=== PATIENT | female | born 1940 | race African-American/Black ===

== ENCOUNTER 2016-04-10 14:37 | Emergency (ER) | payer MEDICARE ==
[~2016-04-10] VITALS: Ht 165.1 cm; Wt 84.5 kg
[~2016-04-10 14:37] MED LIST: ALLE12TA PO; B COTAB3; BENI40TA31 PO; COLC1TAB7 PO; GLUC5TAB3 PO; HYDR-3580 PO; LORTA5 PO; ROBA750T3 PO; TAB-TAB
[2016-04-10 14:39] VITALS: BP 113/64; PULSE 90; RESP 16; TEMP 98; O2SAT 95
[2016-04-10 15:24] LABS: AUTOMATED NEUTROPHIL # 2.8 TH/MM3 (1.8-7.7); BASOPHIL % 0.9 % (0.0-2.0); EOSINOPHIL # 0.1 TH/MM3 (0-0.4); EOSINOPHIL % 1.7 % (0.0-4.0); HEMATOCRIT 36.5 % (35.0-46.0); HEMO FLAGS DIFF FINAL; LYMPH % 41.6 % (9.0-44.0); LYMPHOCYTE # 2.4 TH/MM3 (1.0-4.8); MEAN CELL VOLUME 80.8 FL (80.0-100.0); MEAN CORPUSCULAR HEMOGLOBIN 26.6 PG (27.0-34.0); MEAN CORPUSCULAR HGB CONC 32.9 % (32.0-36.0); NEUT % 48.8 % (16.0-70.0); PLATELET COUNT 214 TH/MM3 (150-450); RED BLOOD COUNT 4.52 MIL/MM3 (4.00-5.30); RED CELL DISTRIBUTION WIDTH 14.6 % (11.6-17.2); WHITE BLOOD COUNT 5.7 TH/MM3 (4.0-11.0)
[2016-04-10 15:39] LABS: BICARBONATE 31.8 MEQ/L (21.0-32.0); POTASSIUM 4.1 MEQ/L (3.5-5.1)
[2016-04-10 18:09] VITALS: BP 136/76; PULSE 72; RESP 18; O2SAT 96
[2016-04-10] MEDS ORDERED: BENI40TA5 PO (18:37)
[2016-04-10] MEDS ORDERED: GLUC5TAB3 PO (18:37)
[2016-04-10] MEDS ORDERED: PERC5TAB12 PO (18:37)
[2016-04-10] MEDS ORDERED: FERR325T PO (18:37)
--- NOTE | 2016-04-10 18:49 | RADRPT ---
EXAM DATE/TIME: 04/10/2016 18:13 [facility] COMPARISON: No previous studies available for comparison. INDICATIONS : Patient has had chest pain since this morning. MEDICAL HISTORY : Hypertension. Diabetes mellitus type II. SURGICAL HISTORY : None. ENCOUNTER: Initial ACUITY: 1 day PAIN SCORE: 10/10 LOCATION: Bilateral chest FINDINGS: No infiltrate, effusion or pneumothorax. Heart size normal. Thoracic aorta is tortuous. CONCLUSION: No evidence of acute cardiopulmonary disease. Robert Burgess MD on April 10, 2016 at 18:47 Board Certified Radiologist. This report was verified electronically.
--- NOTE | 2016-04-10 18:52 | PD ---
HPI Chief Complaint: Chest Pain Time Seen by Provider: 18:47 Travel History International Travel<30 days: No Contact w/Intl Traveler<30days: No Traveled to known affect area: No History of Present Illness HPI 76-year-old female that presents to the ED for evaluation of left-sided chest pain. Per patient the chest pain is positional. Per patient she tried to call her doctor to see the could see her but she could not so she was sent here. She states that she started with this pain around 6:00 this morning. She has any shortness of breath. No diaphoresis. She states having had a stress test about 2 years ago which was normal. She does have a history of diabetes and hypertension takes medications for this. Denies any history of high cholesterol. Has not taken anything for this. Per patient she is more concerned that he could be indigestion versus muscle pain that hearth. She denies any history of heart disease on herself. No stenting or surgery to the chest. She does have an allergy to aspirin and codeine. Pain per patient is 6 out of 10 and does not radiate. Does worsen with certain range of motion of the left arm. PFSH Past Medical History Arthritis: Yes Asthma: No Autoimmune Disease: No Blood Disorders: No Anxiety: No Depression: No Heart Rhythm Problems: No Cancer: No Cardiac Catheterization: Yes (2003 - NO INTERVENTIONS) Cardiovascular Problems: Yes (MURMUR) Chest Pain: Yes COPD: No Diabetes: Yes Patient Takes Glucophage: Yes Diminished Hearing: No Gastrointestinal Disorders: No Glaucoma: No Genitourinary: No Hepatitis: No Hypertension: Yes Kidney Stones: No Musculoskeletal: No Neurologic: No Psychiatric: No Reproductive: No Respiratory: No Migraines: Yes Radiation Therapy: No Renal Failure: No Seizures: Yes (years ago ) Sleep Apnea: No Thyroid Disease: No Ulcer: Yes ?: Not Menopausal: Yes Past Surgical History Abdominal Surgery: No Appendectomy: Yes Cardiac Surgery: No Ear Surgery: No Endocrine Surgery: No Eye Surgery: No Genitourinary Surgery: No Gynecologic Surgery: No Hysterectomy: Yes Neurologic Surgery: No Oral Surgery: No Pacemaker: No Thoracic Surgery: No Other Surgery: Yes (CARDIAC CATH 01/10) Family History Family Myocardial Infarction: Yes (MOTHER AND FATHER) Social History Alcohol Use: No Tobacco Use: No Substance Use: No Allergies-Medications (Allergen,Severity, Reaction): Coded Allergies: Aspirin (Verified Adverse Reaction, Severe, STOMACH UPSET/HAS ULCER, ) Codeine (Verified Adverse Reaction, Severe, GOES CRAZY, UPSET STOMACH, 01/12/15) VOMIT Reported Meds & Prescriptions Reported Meds & Active Scripts Active Reported Percocet (Oxycodone-Acetaminophen) 5-325 mg Tab 1 Tab PO DAILY PRN Ferrous Sulfate 325 Mg Tab 325 Mg PO AC DINNER Glucovance (Glyburide-Metformin) 5-500 Mg Tab 1 Tab PO BID Benicar Hct (Olmesartan-Hydrochlorothiazide) 40-12.5 mg Tab 1 Tab PO DAILY Review of Systems Except as stated in HPI: all other systems reviewed are Neg Physical Exam Narrative GENERAL: SKIN: Warm and dry. HEAD: Atraumatic. Normocephalic. EYES: Pupils equal and round. No scleral icterus. No injection or drainage. ENT: No nasal bleeding or discharge. Mucous membranes pink and moist. NECK: Trachea midline. No JVD. CARDIOVASCULAR: Regular rate and rhythm. No murmurs, S3, S4. Chest pain is not reproducible with touch but reproducible with range of motion of the left upper arm. RESPIRATORY: No accessory muscle use. Clear to auscultation. Breath sounds equal bilaterally. GASTROINTESTINAL: Abdomen soft, non-tender, nondistended. Hepatic and splenic margins not palpable. MUSCULOSKELETAL: Extremities without clubbing, cyanosis, or edema. No obvious deformities. Full range of motion of the upper and lower extremities bilaterally. 2+ pulses bilaterally. NEUROLOGICAL: Awake and alert. No obvious cranial nerve deficits. Motor grossly within normal limits. Five out of 5 muscle strength in the arms and legs. Normal speech. PSYCHIATRIC: Appropriate mood and affect; insight and judgment normal. Data Data Last Documented VS Vital Signs Date Time Temp Pulse Resp B/P Pulse Ox O2 Delivery O2 Flow Rate FiO2 04/10/16 18:12 66 20 98 Room Air 04/10/16 14:39 98.0 113/64 Orders Electrocardiogram (04/10/16 14:43) Complete Blood Count With Diff (04/10/16 14:43) Basic Metabolic Panel (Bmp) (04/10/16 14:43) Ckmb (Isoenzyme) Profile (04/10/16 14:43) Troponin I (04/10/16 14:43) Chest, Single Ap (04/10/16 ) Labs Laboratory Tests Test 04/10/16 14:54 White Blood Count 5.7 TH/MM3 Red Blood Count 4.52 MIL/MM3 Hemoglobin 12.0 GM/DL Hematocrit 36.5 % Mean Corpuscular Volume 80.8 FL Mean Corpuscular Hemoglobin 26.6 PG Mean Corpuscular Hemoglobin 32.9 % Concent Red Cell Distribution Width 14.6 % Platelet Count 214 TH/MM3 Mean Platelet Volume 8.2 FL Neutrophils (%) (Auto) 48.8 % Lymphocytes (%) (Auto) 41.6 % Monocytes (%) (Auto) 7.0 % Eosinophils (%) (Auto) 1.7 % Basophils (%) (Auto) 0.9 % Neutrophils # (Auto) 2.8 TH/MM3 Lymphocytes # (Auto) 2.4 TH/MM3 Monocytes # (Auto) 0.4 TH/MM3 Eosinophils # (Auto) 0.1 TH/MM3 Basophils # (Auto) 0.0 TH/MM3 CBC Comment DIFF FINAL Differential Comment Sodium Level 138 MEQ/L Potassium Level 4.1 MEQ/L Chloride Level 100 MEQ/L Carbon Dioxide Level 31.8 MEQ/L Anion Gap 6 MEQ/L Blood Urea Nitrogen 31 MG/DL Creatinine 1.35 MG/DL Estimat Glomerular Filtration 46 ML/MIN Rate Random Glucose 294 MG/DL Calcium Level 9.0 MG/DL Total Creatine Kinase 37 U/L Troponin I 0.02 NG/ML MDM Medical Decision Making Medical Screen Exam Complete: Yes Emergency Medical Condition: Yes Medical Record Reviewed: Yes Interpretation(s) CBC & BMP Diagram 04/10/16 14:54 EKG shows sinus rhythm with no sign of acute ischemia or arrhythmia. Read by me and attending. Troponin and CK-MB negative. Differential Diagnosis Chest pain versus ACS versus noncardiac chest pain versus a typical chest pain Narrative Course 76-year-old female that presents to the ED for evaluation of chest pain. Patient was properly examined and was found to have signs and symptoms consistent with appears to be possible cardiac chest pain. She does have risk factors including age, diabetes, high blood pressure. She has not had a stress test recently. Initial labs and EKG as well as chest x-ray did not show any sign of acute disease. My recommendation as well as my attendings is for admission to the chest pain center for further cardiac workup. Patient states that she does not want to stay. Patient was made aware of that by leaving she could suffer a real NH and have severe disease because of it. She states that she really has an appointment with her doctor tomorrow and prefers to go to him to get evaluated.AMA: The risks of leaving against medical advice without further evaluation treatment were discussed with the patient. These risks include cardiac dysfunction, cardiac dysrhythmia, possible heart attack, possible stroke or . The patient indicated understanding of these risks and appeared to have the capacity to make this decision. Patient understands that if anything worsens she is to come back. and patient agree with plan. Diagnosis Primary Impression: Chest pain in adult Additional Instructions: Take zantac [id number] to help with her symptoms. Follow with PCP tomorrow. See ED for any worsening symptoms. Med/Other Pt SpecificInfo: No Meds Exist/No RX given Disposition: 07 AGAINST MEDICAL ADVICE Condition: Stable [facility] Joaquin Apr 10, 2016 18:52
--- NOTE | 2016-04-11 13:48 | EKG ---
Date Performed: 04/10/2016 Time Performed: 14:51:34 PTAGE: 76 years EKG: Sinus rhythm POSSIBLE LEFT ATRIAL ENLARGEMENT BORDERLINE LEFT AXIS DEVIATION ST ELEVATION, PROBABLY EARLY REPOLAR IZATION BORDERLINE ECG PREVIOUS TRACING : 06/12/2012 14.42.06 Since previous tracing, no significant change noted DOCTOR: Abigail Downs Interpretating Date/Time 04/11/2016 13:42:15
== END 2016-04-10 19:24 | disposition left against medical advice (07) ==
LOC: NEPE 14:37
DX: R07.9 Chest pain, unspecified (principal); I10 Essential (primary) hypertension; E11.9 Type 2 diabetes mellitus without complications; R01.1 Cardiac murmur, unspecified; M19.90 Unspecified osteoarthritis, unspecified site; Z79.4 Long term (current) use of insulin
CPT/HCPCS: 71010; 80048; 82550; 84484; 85025; 93005

== ENCOUNTER 2017-04-12 20:14 | Emergency (ER) | payer MEDICARE ==
[~2017-04-12] VITALS: Ht 167.6 cm; Wt 85.0 kg
[~2017-04-12 20:14] MED LIST changes: -ALLE12TA PO; -B COTAB3; -BENI40TA31 PO; +BENI40TA5 PO; -COLC1TAB7 PO; +FERR325T PO; -HYDR-3580 PO; -LORTA5 PO; +PERC5TAB12 PO; -ROBA750T3 PO; -TAB-TAB
[2017-04-12 20:17] VITALS: BP 142/70; PULSE 82; RESP 18; O2SAT 98
[2017-04-12 20:41] VITALS: TEMP 98.3
--- NOTE | 2017-04-12 20:42 | PD ---
HPI Chief Complaint: Cold / Flu Symptoms Time Seen by Provider: 20:28 Travel History International Travel<30 days: No Contact w/Intl Traveler<30days: No Traveled to known affect area: No History of Present Illness HPI 69-year-old female presents for evaluation of cough, congestion, frontal headache, chills, myalgias. She reports that symptoms initially started 2 weeks ago. She was seen by her primary care physician 2 weeks ago and started on amoxicillin. She reports improvement in her symptoms however yesterday she began having increasing congestion, cough, chills, myalgias, thus prompting evaluation today. She reports that she was having objective fevers at home, particularly last week, with a maximum temperature of 102.46 days ago. She reports that the cough is nonproductive. Symptoms are mild to moderate with no aggravating or relieving factors. She reports that her grandson was diagnosed with influenza A here yesterday. She denies abdominal pain, vomiting, diarrhea , dysuria, flank pain, dyspnea. She has no other complaints at this time. PFSH Past Medical History Arthritis: Yes Asthma: No Autoimmune Disease: No Blood Disorders: No Anxiety: No Depression: No Heart Rhythm Problems: No Cancer: No Cardiac Catheterization: Yes (2003 - NO INTERVENTIONS) Cardiovascular Problems: Yes (MURMUR) Chest Pain: Yes COPD: No Diabetes: Yes Patient Takes Glucophage: Yes (04/12/2017 @ 1200) Diminished Hearing: No Gastrointestinal Disorders: No Glaucoma: No Genitourinary: No Hepatitis: No Hypertension: Yes Kidney Stones: No Musculoskeletal: No Neurologic: No Psychiatric: No Reproductive: No Respiratory: No Migraines: Yes Radiation Therapy: No Renal Failure: No Seizures: Yes (years ago ) Sleep Apnea: No Thyroid Disease: No Ulcer: Yes Tetanus Vaccination: < 5 Years Influenza Vaccination: No ?: Not Menopausal: Yes Past Surgical History Abdominal Surgery: No Appendectomy: Yes Cardiac Surgery: No Ear Surgery: No Endocrine Surgery: No Eye Surgery: No Genitourinary Surgery: No Gynecologic Surgery: No Hysterectomy: Yes Neurologic Surgery: No Oral Surgery: No Pacemaker: No Thoracic Surgery: No Other Surgery: Yes (CARDIAC CATH 01/10) Family History Family Myocardial Infarction: Yes (MOTHER AND FATHER) Social History Alcohol Use: No Tobacco Use: No Substance Use: No Allergies-Medications (Allergen,Severity, Reaction): Coded Allergies: aspirin (Unverified Adverse Reaction, Severe, STOMACH UPSET/HAS ULCER, 04/12) codeine (Unverified Adverse Reaction, Severe, GOES CRAZY, UPSET STOMACH, ) VOMIT Reported Meds & Prescriptions Reported Meds & Active Scripts Active Tamiflu (Oseltamivir Phosphate) 45 Mg Cap 45 Mg PO BID Reported Percocet (Oxycodone-Acetaminophen) 5-325 mg Tab 1 Tab PO DAILY PRN Ferrous Sulfate 325 Mg Tab 325 Mg PO AC DINNER Glucovance (Glyburide-Metformin) 5-500 Mg Tab 1 Tab PO BID Benicar Hct (Olmesartan-Hydrochlorothiazide) 40-12.5 mg Tab 1 Tab PO DAILY Review of Systems Except as stated in HPI: all other systems reviewed are Neg Physical Exam Narrative GENERAL: Well-developed well-nourished female in no acute distress SKIN: Warm and dry. HEAD: Atraumatic. Normocephalic. EYES: Pupils equal and round. No scleral icterus. No injection or drainage. ENT: No nasal bleeding or discharge. Mucous membranes pink and moist. Tympanic membranes appear normal without erythema or air-fluid level. There is no oral pharyngeal erythema or exudate NECK: Trachea midline. No JVD. No lymphadenopathy CARDIOVASCULAR: Regular rate and rhythm. No murmur appreciated. RESPIRATORY: No accessory muscle use. Clear to auscultation. Breath sounds equal bilaterally. No crackles no wheezing no rhonchi GASTROINTESTINAL: Abdomen soft, non-tender, nondistended. Hepatic and splenic margins not palpable. MUSCULOSKELETAL: No obvious deformities. No clubbing. No cyanosis. No edema. NEUROLOGICAL: Awake and alert. No obvious cranial nerve deficits. Motor grossly within normal limits. Normal speech. PSYCHIATRIC: Appropriate mood and affect; insight and judgment normal. Data Data Last Documented VS Vital Signs Date Time Temp Pulse Resp B/P (MAP) Pulse Ox O2 Delivery O2 Flow Rate FiO2 04/12/17 20:41 98.3 04/12/17 20:17 82 18 98 Room Air Orders Orders Basic Metabolic Panel (Bmp) (04/12/17 20:37) Complete Blood Count With Diff (04/12/17 20:37) Chest, Single Ap (04/12/17 20:37) Influenzae A/B Antigen (04/12/17 20:37) Acetaminophen (Tylenol) (04/12/17 20:45) Ondansetron Inj (Zofran Inj) (04/12/17 20:45) Oseltamivir (Tamiflu) (04/12/17 21:30) Labs Laboratory Tests Test 04/12/17 20:50 White Blood Count 6.2 TH/MM3 Red Blood Count 4.41 MIL/MM3 Hemoglobin 11.7 GM/DL Hematocrit 35.3 % Mean Corpuscular Volume 80.0 FL Mean Corpuscular Hemoglobin 26.6 PG Mean Corpuscular Hemoglobin Concent 33.2 % Red Cell Distribution Width 15.3 % Platelet Count 252 TH/MM3 Mean Platelet Volume 8.9 FL Neutrophils (%) (Auto) 36.5 % Lymphocytes (%) (Auto) 53.3 % Monocytes (%) (Auto) 7.0 % Eosinophils (%) (Auto) 2.5 % Basophils (%) (Auto) 0.7 % Neutrophils # (Auto) 2.3 TH/MM3 Lymphocytes # (Auto) 3.3 TH/MM3 Monocytes # (Auto) 0.4 TH/MM3 Eosinophils # (Auto) 0.2 TH/MM3 Basophils # (Auto) 0.0 TH/MM3 CBC Comment DIFF FINAL Differential Comment Blood Urea Nitrogen 28 MG/DL Creatinine 1.11 MG/DL Random Glucose 119 MG/DL Calcium Level 9.2 MG/DL Sodium Level 138 MEQ/L Potassium Level 3.8 MEQ/L Chloride Level 103 MEQ/L Carbon Dioxide Level 29.5 MEQ/L Anion Gap 6 MEQ/L Estimat Glomerular Filtration Rate 58 ML/MIN [facility] Medical Decision Making Medical Screen Exam Complete: Yes Emergency Medical Condition: Yes Medical Record Reviewed: Yes Differential Diagnosis Influenza, pneumonia, sinusitis, sepsis, pyelonephritis, meningitis Narrative Course 77-year-old female with 2 weeks of cough, congestion, fevers, chills, myalgias, on amoxicillin starting 2 weeks ago, improvement, now worsening symptoms since yesterday. She appears well. She is afebrile. Her lungs are clear to auscultation. She does report that her grandson was diagnosed with influenza A yesterday. Plan is for basic lab work, chest x-ray, influenza antigen test. She will be given Tylenol, Zofran. Chest x-ray reveals no acute abnormality. CBC is unremarkable. BMP reveals a GFR 58 which is improved from previous GFR on record from 2017. Influenza antigen is negative however this has poor sensitivity and her symptoms, history of exposure from her grandson who was diagnosed with influenza A yesterday, would be highly suspicious for influenza. Prior history it sounds like she has had cold symptoms for the past 2 weeks however they have been improving until yesterday they suddenly worsened. This would be suspicious for now developing influenza. Therefore the patient will be started on Tamiflu empirically, first dose provided tonight. I discussed the likely diagnosis with the patient and I discussed signs and symptoms that would warrant returning to the emergency room. She is stable for discharge. Diagnosis Primary Impression: Viral syndrome Additional Instructions: Medication as prescribed. Stay well hydrated and well nourished, get plenty of rest. Follow-up with primary care physician in 3-4 days. Return for any acutely new or worsening symptoms. Med/Other Pt SpecificInfo: Prescription(s) given Scripts Oseltamivir (Tamiflu) 45 Mg Cap 45 MG PO BID for Mgmt Viral Infection, #9 CAP 0 Refills Prov: Marianne Tena MD 04/12/17 Disposition: 01 DISCHARGE HOME Condition: Stable Cullen Kaye Apr 12, 2017 20:42
[2017-04-12] MEDS ORDERED: ACETAMINOPHEN 325 MG TAB PO ONE (20:45)
[2017-04-12] MEDS ORDERED: ONDANSETRON HCL 4 MG/2 ML VIAL IV PUSH ONE (20:45)
[2017-04-12 21:05] LABS: AUTOMATED NEUTROPHIL # 2.3 TH/MM3 (1.8-7.7); BASOPHIL % 0.7 % (0.0-2.0); EOSINOPHIL # 0.2 TH/MM3 (0-0.4); EOSINOPHIL % 2.5 % (0.0-4.0); HEMATOCRIT 35.3 % (35.0-46.0); HEMOGLOBIN 11.7 GM/DL (11.6-15.3); LYMPH % 53.3 % (9.0-44.0); LYMPHOCYTE # 3.3 TH/MM3 (1.0-4.8); MEAN CORPUSCULAR HEMOGLOBIN 26.6 PG (27.0-34.0); MEAN CORPUSCULAR HGB CONC 33.2 % (32.0-36.0); MEAN PLATELET VOLUME 8.9 FL (7.0-11.0); MONOCYTE # 0.4 TH/MM3 (0-0.9); NEUT % 36.5 % (16.0-70.0); PLATELET COUNT 252 TH/MM3 (150-450); RED BLOOD COUNT 4.41 MIL/MM3 (4.00-5.30); RED CELL DISTRIBUTION WIDTH 15.3 % (11.6-17.2); WHITE BLOOD COUNT 6.2 TH/MM3 (4.0-11.0)
[2017-04-12 21:17] LABS: BICARBONATE 29.5 MEQ/L (21.0-32.0); CALCIUM 9.2 MG/DL (8.5-10.1); CREATININE 1.11 MG/DL (0.50-1.00)
--- NOTE | 2017-04-12 21:25 | RADRPT ---
EXAM DATE/TIME: 04/12/2017 20:50 [facility] COMPARISON: CHEST SINGLE AP, April 10, 2016, 18:13. INDICATIONS : Cough. MEDICAL HISTORY : Hypertension. Diabetes mellitus type II. SURGICAL HISTORY : None. ENCOUNTER: Initial ACUITY: 1 day PAIN SCORE: 4/10 LOCATION: Bilateral chest FINDINGS: The lungs are clear without infiltrate, nodule, or mass. There is no appreciable pleural effusion fo r technique. Heart and mediastinum are unremarkable. CONCLUSION: No acute cardiopulmonary disease. Dru Davis MD on April 12, 2017 at 21:22 Board Certified Radiologist. This report was verified electronically.
[2017-04-12] MEDS ORDERED: OSELTAMIVIR PHOSPHATE 75 MG CAP PO ONE (21:30)
[2017-04-12] MEDS ORDERED: OSEL45 PO (21:34)
== END 2017-04-12 22:15 | disposition home or self-care (01) ==
LOC: NEPC 20:14
DX: B34.9 Viral infection, unspecified (principal); M19.90 Unspecified osteoarthritis, unspecified site; E11.9 Type 2 diabetes mellitus without complications; I10 Essential (primary) hypertension; R56.9 Unspecified convulsions; Z79.899 Other long term (current) drug therapy; Z88.6 Allergy status to analgesic agent; Z88.5 Allergy status to narcotic agent
CPT/HCPCS: 71045; 80048; 85025; 87804; 96374; 99284; J2405

== ENCOUNTER 2017-05-26 16:24 | Emergency (ER) | payer MEDICARE ==
[~2017-05-26 16:24] MED LIST changes: +OSEL45 PO
[2017-05-26 17:11] VITALS: BP 137/78; PULSE 115; RESP 22; TEMP 99.5; O2SAT 99
--- NOTE | 2017-05-26 18:38 | RADRPT ---
EXAM DATE/TIME: 05/26/2017 18:02 [facility] COMPARISON: No previous studies available for comparison. INDICATIONS : Cough, fever, and chest pain. MEDICAL HISTORY : None. SURGICAL HISTORY : None. ENCOUNTER: Initial ACUITY: 1 week PAIN SCORE: 5/10 LOCATION: Bilateral chest FINDINGS: PA and lateral views of the chest demonstrate the lungs to be symmetrically aerated without evidence of mass, infiltrate or effusion. Mild basilar atelectasis. The cardiomediastinal contours are unremar kable. Osseous structures are intact. CONCLUSION: 1. Minimal basilar atelectasis. Cardiomegaly. Nikolay Florian MD on May 26, 2017 at 18:34 Board Certified Radiologist. This report was verified electronically.
--- NOTE | 2017-05-26 22:10 | PD ---
HPI Chief Complaint: Abdominal Pain Time Seen by Provider: 17:05 Travel History International Travel<30 days: No Contact w/Intl Traveler<30days: No Traveled to known affect area: No History of Present Illness HPI 77-year-old female presents emergency department for evaluation of cough and chest congestion 10 days. Patient has completed a course of Levaquin by Dr. Shah. Since being on the Levaquin she has developed epigastric pain. No current fever but has had subjective fevers. Cough is nonproductive. No nausea , vomiting, diarrhea. She does have a sore throat and raspy voice. PFSH Past Medical History Arthritis: Yes Asthma: No Autoimmune Disease: No Blood Disorders: No Anxiety: No Depression: No Heart Rhythm Problems: No Cancer: No Cardiac Catheterization: Yes (2004 - NO INTERVENTIONS) Cardiovascular Problems: Yes (MURMUR) Chest Pain: Yes COPD: No Diabetes: Yes Diminished Hearing: No Gastrointestinal Disorders: No Glaucoma: No Genitourinary: No Hepatitis: No Hypertension: Yes Kidney Stones: No Musculoskeletal: No Neurologic: No Psychiatric: No Reproductive: No Respiratory: No Migraines: Yes Radiation Therapy: No Renal Failure: No Seizures: Yes (years ago ) Sleep Apnea: No Thyroid Disease: No Ulcer: Yes Menopausal: Yes Past Surgical History Abdominal Surgery: No Appendectomy: Yes Cardiac Surgery: No Ear Surgery: No Endocrine Surgery: No Eye Surgery: No Genitourinary Surgery: No Gynecologic Surgery: No Hysterectomy: Yes Neurologic Surgery: No Oral Surgery: No Pacemaker: No Thoracic Surgery: No Other Surgery: Yes (CARDIAC CATH 01/10) Social History Alcohol Use: No Tobacco Use: No Substance Use: No Allergies-Medications (Allergen,Severity, Reaction): Coded Allergies: aspirin (Unverified Adverse Reaction, Severe, STOMACH UPSET/HAS ULCER, 04/12) codeine (Unverified Adverse Reaction, Severe, GOES CRAZY, UPSET STOMACH, ) VOMIT Reported Meds & Prescriptions Reported Meds & Active Scripts Active Tamiflu (Oseltamivir Phosphate) 45 Mg Cap 45 Mg PO BID Reported Percocet (Oxycodone-Acetaminophen) 5-325 mg Tab 1 Tab PO DAILY PRN Ferrous Sulfate 325 Mg Tab 325 Mg PO AC DINNER Glucovance (Glyburide-Metformin) 5-500 Mg Tab 1 Tab PO BID Benicar Hct (Olmesartan-Hydrochlorothiazide) 40-12.5 mg Tab 1 Tab PO DAILY Review of Systems Except as stated in HPI: all other systems reviewed are Neg Physical Exam Narrative Well-nourished female patient. She appears nontoxic. She does have a raspy voice and is difficult to hear. She has even respirations. A coarse cough. Tachycardic heart rhythm. She moves all extremities. She does speak clearly. Data Data Last Documented VS Vital Signs Date Time Temp Pulse Resp B/P (MAP) Pulse Ox O2 Delivery O2 Flow Rate FiO2 05/26/17 17:11 99.5 115 22 137/78 (97) 99 Orders Orders Chest, Pa & Lat (05/26/17 17:15) MDM Medical Decision Making Medical Screen Exam Complete: Yes Emergency Medical Condition: Yes Medical Record Reviewed: Yes Differential Diagnosis Pneumonia versus influenza versus bronchitis versus ACS Narrative Course 77-year-old female presents to emergency department for evaluation. Patient appears nontoxic. Workup was initiated in triage. Patient chooses to leave. AMA: The risks of leaving against medical advice without further evaluation treatment were discussed with the patient. These risks include cardiac dysfunction, cardiac dysrhythmia, possible heart attack, possible stroke or . The patient indicated understanding of these risks and appeared to have the capacity to make this decision. Diagnosis Primary Impression: Chest congestion Additional Impression: Epigastric pain Disposition: 07 AGAINST MEDICAL ADVICE Condition: Stable Ghislaine Wilkerson May 26, 2017 22:10
== END 2017-05-26 19:51 | disposition left against medical advice (07) ==
LOC: NED 16:24
DX: R09.89 Other specified symptoms and signs involving the circulatory and respiratory systems (principal); R10.13 Epigastric pain; I10 Essential (primary) hypertension
CPT/HCPCS: 71046; 99283